=== PATIENT | female | born 1960 | race Caucasian/White ===

== ENCOUNTER 2019-11-12 05:22 | Emergency (ER) | payer MEDICAID ==
[~2019-11-12] VITALS: Ht 157 cm; Wt 44.0 kg
[2019-11-12] MEDS ORDERED: NS IV 500 ML 500 ML IV ONE (06:03)
--- NOTE | 2019-11-12 06:11 | ED GI ---
General Chief Complaint: Abdominal/GI Problems Stated Complaint: POSS FOOD POISONING Nursing Triage Note: constant upper abdominal pressure since 182911/11/2019 after eating chicken. intermittant nausea. Sepsis Screen: No Definite Risk Source of Information: Patient Exam Limitations: No Limitations (GAMALIEL MAGALLON) History of Present Illness Date Seen by Provider: Nov 12, 2019 Time Seen by Provider: 05:45 Initial Comments The patient presents to the ER by private conveyance from home with chief complaint that last night she ate some chicken that she thought tasted like it had turned bad. Shortly after that within an hour she started feeling poorly with nausea and abdominal discomfort. She's not been able to pass stool or vomit. She says her dogs ate it as well but they are fine. She has no fever chills dysuria or diarrhea. She had her appendix removed when she had a C- section many years ago and does not follow with a primary care doctor. She says she has no significant medical history except for epilepsy but does not take any medicines routinely. Her stated allergy to penicillin is it causes cardiac arrest. She says she feels like she would feel much better if she could have a bowel movement or vomit. (GAMALIEL MAGALLON) Allergies and Home Medications Allergies Coded Allergies: Penicillins (Verified Allergy, Unknown, 11/12/19) aspirin (Verified Allergy, Unknown, 11/12/19) Patient Home Medication List Home Medication List Reviewed: Yes (GAMALIEL MAGALLON) Review of Systems Review of Systems Constitutional: No chills, No diaphoresis EENTM: No Blurred Vision, No Double Vision Respiratory: Denies Cough, Denies Shortness of Air Cardiovascular: Denies Chest Pain, Denies Lightheadedness Gastrointestinal: See HPI, Abdominal Pain; Denies Constipated, Denies Diarrhea; Nausea; Denies Vomiting Genitourinary: Denies Burning, Denies Discharge Musculoskeletal: No back pain, No joint pain Skin: No pruritus, No rash Psychiatric/Neurological: Denies Headache, Denies Numbness (GAMALIEL MAGALLON) All Other Systems Reviewed Negative Unless Noted: Yes (GAMALIEL MAGALLON) Past Jhwldxu-Uzznki-Txnhla Hx Patient Social History Alcohol Use: Denies Use Recreational Drug Use: No Smoking Status: Current Everyday Smoker Type Used: Cigarettes 2nd Hand Smoke Exposure: Yes Recent Foreign Travel: No Contact w/Someone Who Travel: No Recent Infectious Disease Expo: No Recent Hopitalizations: No (GAMALIEL MAGALLON) Immunizations Up To Date Tetanus Booster (TDap): Unknown (GAMALIEL MAGALLON) Seasonal Allergies Seasonal Allergies: No (GAMALIEL MAGALLON) Past Medical History Surgeries: Yes Appendectomy, Section, Orthopedic Respiratory: No Cardiac: No Neurological: Yes 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 oz. kg; 17.00 BMI Method: General Appearance: WD/WN, mild distress HEENT: PERRL/EOMI, pharynx normal Neck: full range of motion, supple, normal inspection Respiratory: no respiratory distress, no accessory muscle use Cardiovascular: normal peripheral pulses, regular rate, rhythm Peripheral Pulses: 2+ Radial Pulses (R), 2+ Radial Pulses (L) Gastrointestinal: normal bowel sounds (quiescent), no organomegaly, guarding, tenderness (all 4 quadrants) Extremities: non-tender, normal inspection, normal capillary refill Neurologic/Psychiatric: alert, oriented x 3, other (anxious affect) Skin: normal color, warm/dry (GAMALIEL MAGALLON) Progress/Results/Core Measures Results/Orders Lab Results Laboratory Tests Test 11/12/19 06:05 11/12/19 06:10 Range/Units Urine Color YELLOW Urine Clarity SL CLOUDY Urine pH 6.0 5-9 Urine Specific [place] 1.020 1.016-1.022 Urine Protein NEGATIVE NEGATIVE Urine Glucose (UA) NEGATIVE NEGATIVE Urine Ketones TRACE H NEGATIVE Urine Nitrite NEGATIVE NEGATIVE Urine Bilirubin NEGATIVE NEGATIVE Urine Urobilinogen 0.2 < = 1.0 MG/DL Urine Leukocyte Esterase 1+ H NEGATIVE Urine RBC (Auto) 1+ H NEGATIVE Urine RBC NONE /HPF Urine WBC 2-5 /HPF Urine Squamous Epithelial Cells 0-2 /HPF Urine Crystals NONE /LPF Urine Bacteria NEGATIVE /HPF Urine Casts NONE /LPF Urine Mucus NEGATIVE /LPF Urine Culture Indicated NO White Blood Count 10.9 4.3-11.0 10^3/uL Red Blood Count 4.70 3.80-5.11 10^6/uL Hemoglobin 14.9 11.5-16.0 g/dL Hematocrit 44 35-52 % Mean Corpuscular Volume 93 80-99 fL Mean Corpuscular Hemoglobin 32 25-34 pg Mean Corpuscular Hemoglobin Concent 34 32-36 g/dL Red Cell Distribution Width 11.9 10.0-14.5 % Platelet Count 197 130-400 10^3/uL Mean Platelet Volume 9.4 9.0-12.2 fL Immature Granulocyte % (Auto) 0 % Neutrophils (%) (Auto) 73 42-75 % Lymphocytes (%) (Auto) 19 12-44 % Monocytes (%) (Auto) 7 0-12 % Eosinophils (%) (Auto) 0 0-10 % Basophils (%) (Auto) 0 0-10 % Neutrophils # (Auto) 8.0 H 1.8-7.8 10^3/uL Lymphocytes # (Auto) 2.0 1.0-4.0 10^3/uL Monocytes # (Auto) 0.8 0.0-1.0 10^3/uL Eosinophils # (Auto) 0.0 0.0-0.3 10^3/uL Basophils # (Auto) 0.0 0.0-0.1 10^3/uL Immature Granulocyte # (Auto) 0.0 0.0-0.1 10^3/uL Sodium Level 138 135-145 MMOL/L Potassium Level 3.8 3.6-5.0 MMOL/L Chloride Level 103 98-107 MMOL/L Carbon Dioxide Level 24 21-32 MMOL/L Anion Gap 11 5-14 MMOL/L Blood Urea Nitrogen 10 7-18 MG/DL Creatinine 0.80 0.60-1.30 MG/DL Estimat Glomerular Filtration Rate > 60 BUN/Creatinine Ratio 13 Glucose Level 99 70-105 MG/DL Calcium Level 8.8 8.5-10.1 MG/DL Corrected Calcium 8.5 8.5-10.1 MG/DL Total Bilirubin 1.3 H 0.1-1.0 MG/DL Aspartate Amino Transf (AST/SGOT) 18 5-34 U/L Alanine Aminotransferase (ALT/SGPT) 15 0-55 U/L Alkaline Phosphatase 62 40-136 U/L C-Reactive Protein High Sensitivity 0.11 0.00-0.50 MG/DL Total Protein 6.8 6.4-8.2 GM/DL Albumin 4.4 3.2-4.5 GM/DL Lipase 20 8-78 U/L (REGINALD SURESH MD) My Orders Orders - REGINALD SURESH MD Abdomen, Flat & Upright/Decub (11/12/19 06:32) (REGINALD SURESH MD) Medications Given in ED Current Medications Medications Dose Ordered Sig/Elder Route Start Time Stop Time Status Last Admin Dose Admin Ketorolac Tromethamine 30 mg ONCE ONCE IVP 11/12/19 06:15 11/12/19 06:16 DC 11/12/19 06:14 30 MG Ondansetron HCl 4 mg ONCE ONCE IVP 11/12/19 06:15 11/12/19 06:16 DC 11/12/19 06:13 4 MG Sodium Chloride 500 ml @ 0 mls/hr Q0M ONCE IV 11/12/19 06:03 11/12/19 06:05 DC 11/12/19 06:13 0 MLS/HR (REGINALD SURESH MD) Vital Signs/I&O 11/12/19 11/12/19 05:38 07:35 Temp 36.8 Pulse 99 99 Resp 18 18 B/P (MAP) 105/86 (92) 105/86 (92) Pulse Ox 97 97 O2 Delivery Room Air (REGINALD SURESH MD) Blood Pressure Mean: 92 Progress Progress Note : Time: 06:09 Progress Note Because of the rapid onset of discomfort after eating it's possible she has a preformed toxin. We have described conservative course of care. Plan to check some basic labs and urine to rule out significant infectious disease. Toradol and ondansetron for her discomfort as well as 500 cc normal saline. Urinalysis. We would consider imaging if she has concerning labs. She has no fever but does have a heart rate in the 90s. (GAMALIEL MAGALLON) Progress Note : Time: 07:08 Progress Note I assumed care of this patient from Dr. Magallon at shift change. Labs were reviewed and were unremarkable. KUB/lateral abdominal x-ray was viewed by me and showed no evidence of obstruction. Patient states symptoms completely resolved with treatment and she is ready to go home. Patient was reexamined prior to discharge and found to have no abdominal tenderness or other abnormal abdominal findings. Bowel sounds were normal. (REGINALD SURESH MD) Diagnostic Imaging Diagonstic Imaging: Xray Plain Films/CT/US/NM/MRI: abdomen, pelvis Comments KUB and lateral abdominal x-ray viewed by me. There is no evidence of obstruction. There is perhaps some constipation that patient describes no subjective constipation. (REGINALD SURESH MD) Transfer of Care Time: 06:20 Care transferred to: Dr. Dick (GAMALIEL MAGALLON) Departure Impression Primary Impression: Generalized abdominal pain Additional Impression: Nausea Disposition: 01 HOME, SELF-CARE Condition: Improved Departure-Patient Inst. Decision time for Depature: 07:06 (REGINALD SURESH MD) Referrals: NO,LOCAL PHYSICIAN (PCP/Family) Primary Care Physician Patient Instructions: Severe Abdominal Pain, Adult (DC) Add. Discharge Instructions: Adhere to a clear liquid diet for the next 12 hours. Then gradually advance your diet with small quantities of bland food. For pain you may take Tylenol (acetaminophen) up to 650 mg every 6 hours as needed. For nausea try Zofran (ondansetron) as prescribed. Return to the emergency room if your symptoms worsen despite taking these measures. Otherwise follow up with your primary care provider if you have persistent symptoms. All discharge instructions reviewed with patient and/or family. Voiced understanding. Scripts Ondansetron (Ondansetron Odt) 4 Mg Tab.rapdis 4 MG SL Q4H PRN for NAUSEA/VOMITING, #10 TAB Prov: REGINALD SURESH MD 11/12/19 GAMALIEL MAGALLON Nov 12, 2019 06:11 REGINALD SURESH MD Nov 12, 2019 07:09
[2019-11-12 06:15] LABS: BILIRUBIN,URINE NEGATIVE (NEGATIVE); CLARITY,URINE SL CLOUDY; COLOR,URINE YELLOW; GLUCOSE, URINE (UA) NEGATIVE (NEGATIVE); KETONES,URINE TRACE (NEGATIVE); LEUKOCYTE ESTERASE ,URINE 1+ (NEGATIVE); NITRITE,URINE NEGATIVE (NEGATIVE); PROTEIN,URINE NEGATIVE (NEGATIVE)
[2019-11-12] MEDS ORDERED: KETOROLAC 30 MG/ML VIAL IVP ONE (06:15)
[2019-11-12] MEDS ORDERED: ONDANSETRON 4 MG/2 ML (SDV) Z0FRAN IVP ONE (06:15)
[2019-11-12 06:26] LABS: BASOPHILS % (AUTO) 0 % (0-10); EOSINOPHILS % (AUTO) 0 % (0-10); HEMATOCRIT 44 % (35-52); HEMOGLOBIN 14.9 g/dL (11.5-16.0); LYMPHOCYTES % (AUTO) 19 % (12-44); MEAN CORPUSCULAR HEMOGLOBIN 32 pg (25-34); MEAN CORPUSCULAR HGB CONC 34 g/dL (32-36); MEAN CORPUSCULAR VOLUME 93 fL (80-99); MEAN PLATELET VOLUME 9.4 fL (9.0-12.2); MONOCYTES # (AUTO) 0.8 10^3/uL (0.0-1.0); MONOCYTES % (AUTO) 7 % (0-12); NEUTROPHILS % (AUTO) 73 % (42-75); PLATELET COUNT 197 10^3/uL (130-400); WHITE BLOOD COUNT 10.9 10^3/uL (4.3-11.0)
[2019-11-12 06:31] LABS: BACTERIA,URINE NEGATIVE /HPF; SQUAMOUS EPITHELIAL CELL,UR 0-2 /HPF
[2019-11-12 06:37] LABS: ALBUMIN 4.4 GM/DL (3.2-4.5); CHLORIDE 103 MMOL/L (98-107); POTASSIUM 3.8 MMOL/L (3.6-5.0); SODIUM 138 MMOL/L (135-145)
[2019-11-12 06:38] LABS: CALCIUM 8.8 MG/DL (8.5-10.1)
[2019-11-12 06:39] LABS: GLUCOSE 99 MG/DL (70-105); TOTAL PROTEIN 6.8 GM/DL (6.4-8.2)
[2019-11-12 06:40] LABS: CARBON DIOXIDE 24 MMOL/L (21-32)
[2019-11-12 06:41] LABS: BILIRUBIN,TOTAL 1.3 MG/DL (0.1-1.0)
[2019-11-12 06:42] LABS: ALKALINE PHOSPHATASE 62 U/L (40-136)
[2019-11-12 06:43] LABS: GFR ESTIMATED > 60
[2019-11-12 06:44] LABS: BUN/CREATININE RATIO 13
[2019-11-12 06:46] LABS: ALANINE AMINOTRANSFERASE 15 U/L (0-55)
[2019-11-12 06:52] LABS: LIPASE 20 U/L (8-78)
--- NOTE | 2019-11-12 07:05 | Diagnostic Imaging Report ---
EXAM: ABDOMEN, FLAT UPRIGHT/DECUB INDICATION: Abdominal pain. Nausea. COMPARISON: None. FINDINGS: Nonspecific bowel gas pattern. No large stool burden. The lung bases are clear. No acute osseous findings. No radiopaque foreign bodies. IMPRESSION: Nonspecific bowel gas pattern. Dictated by: Dictated on workstation # [id number]
[2019-11-12 07:35] VITALS: BP 105/86
[2019-11-12] MEDS ORDERED: ONDA4TAB11 SL (09:04)
== END 2019-11-12 07:34 | disposition home or self-care (01) ==
LOC: EDUNIT# 05:22 → ER 05:25
DX: R10.84 Generalized abdominal pain (principal); R11.0 Nausea; G40.909 Epilepsy, unspecified, not intractable, without status epilepticus; F17.210 Nicotine dependence, cigarettes, uncomplicated; Z88.0 Allergy status to penicillin; Z88.6 Allergy status to analgesic agent
CPT/HCPCS: 36415; 74019; 80053; 81000; 83690; 85025; 86141

== ENCOUNTER 2022-07-19 16:22 | Inpatient (IN) | payer MEDICAID ==
[~2022-07-19] VITALS: Ht 157.5 cm; Wt 49.0 kg
[~2022-07-19 16:22] MED LIST: ONDA4TAB11 SL
[2022-07-19] MEDS ORDERED: NS IV 1000 ML 1,000 ML IV STA (16:40)
[2022-07-19] MEDS ORDERED: ONDANSETRON 4 MG/2 ML (SDV) Z0FRAN IVP ONE (16:45)
--- NOTE | 2022-07-19 16:47 | ED Abdominal Pain ---
General Chief Complaint: Abdominal/GI Problems Stated Complaint: VOMITING Source of Information: Patient Exam Limitations: No Limitations History of Present Illness Date Seen by Provider: Jul 19, 2022 Time Seen by Provider: 16:43 Initial Comments Patient is a 62-year-old female with a history of appendectomy who presents to the ED for abdominal pain and vomiting. Symptoms started on Friday. Last bowel movement was Friday. She states she feels bloated and distended. She reports lower abdominal pain that is constant. Pain is described as cramping and worse after vomiting. She denies of any urinary symptoms such as dysuria, increased urine frequency. denies fever, chest pain, cough, shortness of breath. Similar episode in the past secondary to food poisoning. She denies eating anything different earlier this week before the symptoms started. No recent antibiotic use or travels. Denies taking any medication at home. Not able to eat or drink since friday. History of epilepsy. Not currently taking medication. Last seizure several years ago Allergies and Home Medications Allergies Coded Allergies: Penicillins (Verified Allergy, Unknown, 11/12/19) aspirin (Verified Allergy, Unknown, 11/12/19) Patient Home Medication List Home Medication List Reviewed: Yes Ondansetron (Ondansetron Odt) 4 Mg Tab.rapdis, 4 MG SL Q4H PRN for NAUSEA/VOMITING Prescribed by: REGINALD DURON on 11/12/19 0904 Review of Systems Review of Systems Constitutional: No chills, No diaphoresis, No malaise, No weakness EENTM: No Blurred Vision, No Double Vision, No Eye Pain, No Ear Pain, No Mouth Pain, No Throat Pain, No Throat Swelling Respiratory: Denies Cough, Denies Orthopnea, Denies Shortness of Air Cardiovascular: Denies Chest Pain, Denies Edema, Denies Irregular Heart Rate Gastrointestinal: Abdominal Pain; Denies Diarrhea; Nausea, Vomiting Genitourinary: Denies Burning, Denies Discharge, Denies Drainage, Denies Frequency Musculoskeletal: No back pain, No joint pain Skin: No change in color, No change in hair/nails All Other Systems Reviewed Negative Unless Noted: Yes Past Cwkgzgp-Prnggn-Gorvim Hx Patient Social History Tobacco Use?: Yes Tobacco type used: Cigarettes Substance use?: No Alcohol Use?: No Pt feels they are or have been: No Immunizations Up To Date Tetanus Booster (TDap): Unknown Seasonal Allergies Seasonal Allergies: No Past Medical History Surgery/Hospitalization HX: EPILEPSY APPY, , BILAT FEET, KNEE Surgeries: Yes Appendectomy, Section, Orthopedic Respiratory: No Cardiac: No 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 oz. kg; 17.00 BMI Method: General Appearance: WD/WN, no apparent distress HEENT: PERRL/EOMI, normal ENT inspection, TMs normal, pharynx normal Neck: non-tender, full range of motion, supple, normal inspection Respiratory: chest non-tender, lungs clear, normal breath sounds, no respiratory distress, no accessory muscle use Cardiovascular: regular rate, rhythm, no edema, no gallop, no JVD Gastrointestinal: normal bowel sounds, soft, no organomegaly, no pulsatile mass, tenderness (Left lower quadrant tenderness, right upper quadrant tenderness. Normal bowel sounds throughout.) Extremities: normal range of motion, non-tender, normal inspection, no pedal e tere, no calf tenderness Back: normal inspection, no CVA tenderness, no vertebral tenderness Neurologic/Psychiatric: hunter trapper II-XII nml as tested, no motor/sensory deficits, alert, normal mood/affect, oriented x 3 Progress/Results/Core Measures Results/Orders Lab Results Laboratory Tests Test 07/19/22 16:44 07/19/22 18:25 Range/Units White Blood Count 18.2 H 4.3-11.0 10^3/uL Red Blood Count 5.39 H 3.80-5.11 10^6/uL Hemoglobin 17.1 H 11.5-16.0 g/dL Hematocrit 48 35-52 % Mean Corpuscular Volume 90 80-99 fL Mean Corpuscular Hemoglobin 32 25-34 pg Mean Corpuscular Hemoglobin Concent 35 32-36 g/dL Red Cell Distribution Width 12.4 10.0-14.5 % Platelet Count 204 130-400 10^3/uL Mean Platelet Volume 9.3 9.0-12.2 fL Immature Granulocyte % (Auto) 1 % Neutrophils (%) (Auto) 92 H 42-75 % Lymphocytes (%) (Auto) 3 L 12-44 % Monocytes (%) (Auto) 4 0-12 % Eosinophils (%) (Auto) 0 0-10 % Basophils (%) (Auto) 0 0-10 % Neutrophils # (Auto) 16.8 H 1.8-7.8 10^3/uL Lymphocytes # (Auto) 0.6 L 1.0-4.0 10^3/uL Monocytes # (Auto) 0.7 0.0-1.0 10^3/uL Eosinophils # (Auto) 0.0 0.0-0.3 10^3/uL Basophils # (Auto) 0.0 0.0-0.1 10^3/uL Immature Granulocyte # (Auto) 0.1 0.0-0.1 10^3/uL Neutrophils % (Manual) 91 % Lymphocytes % (Manual) 3 % Monocytes % (Manual) 2 % Eosinophils % (Manual) 0 % Basophils % (Manual) 0 % Band Neutrophils 4 % Blood Morphology Comment NORMAL Sodium Level 128 L 135-145 MMOL/L Potassium Level 4.4 3.6-5.0 MMOL/L Chloride Level 93 L 98-107 MMOL/L Carbon Dioxide Level 22 21-32 MMOL/L Anion Gap 13 5-14 MMOL/L Blood Urea Nitrogen 15 7-18 MG/DL Creatinine 0.86 0.60-1.30 MG/DL Estimat Glomerular Filtration Rate 76 BUN/Creatinine Ratio 17 Glucose Level 151 H 70-105 MG/DL Calcium Level 10.3 H 8.5-10.1 MG/DL Corrected Calcium 10.1 8.5-10.1 MG/DL Total Bilirubin 1.2 H 0.1-1.0 MG/DL Aspartate Amino Transf (AST/SGOT) 13 5-34 U/L Alanine Aminotransferase (ALT/SGPT) 12 0-55 U/L Alkaline Phosphatase 71 40-136 U/L Total Protein 7.8 6.4-8.2 GM/DL Albumin 4.2 3.2-4.5 GM/DL Lipase < 4 L 8-78 U/L Urine Color YELLOW Urine Clarity CLEAR Urine pH 5.5 5-9 Urine Specific [place] 1.015 L 1.016-1.022 Urine Protein 2+ H NEGATIVE Urine Glucose (UA) NEGATIVE NEGATIVE Urine Ketones TRACE H NEGATIVE Urine Nitrite NEGATIVE NEGATIVE Urine Bilirubin 1+ H NEGATIVE Urine Urobilinogen 1.0 < = 1.0 MG/DL Urine Leukocyte Esterase NEGATIVE NEGATIVE Urine RBC (Auto) 3+ H NEGATIVE Urine RBC 2-5 H /HPF Urine WBC 0-2 /HPF Urine Squamous Epithelial Cells 0-2 /HPF Urine Crystals NONE /LPF Urine Bacteria FEW H /HPF Urine Casts PRESENT /LPF Urine Hyaline Casts 5-10 H /LPF Urine Mucus SMALL H /LPF Urine Culture Indicated YES My Orders Orders - TUNG RUBI Cbc With Automated Diff (07/19/22 16:40) Comprehensive Metabolic Panel (07/19/22 16:40) Lipase (07/19/22 16:40) Ua Culture If Indicated (07/19/22 16:40) Ct Abdomen/Pelvis W (07/19/22 16:40) Ondansetron Injection (Zofran Injectio (07/19/22 16:45) Ns Iv 1000 Ml (Sodium Chloride 0.9%) (07/19/22 16:40) Manual Differential (07/19/22 16:44) Iohexol Injection (Omnipaque 350 Mg/Ml 1 (07/19/22 17:30) Received Contrast (Hold Metformin- Contr (07/19/22 17:30) Sodium Chloride Flush (Catheter Flush Sy (07/19/22 17:30) Ciprofloxacin Iv 400mg/200ml (Cipro Iv S (07/19/22 18:15) Metronidazole 500mg/100ml Ivpb (Flagyl 5 (07/19/22 18:15) Urine Culture (07/19/22 18:25) Medications Given in ED Current Medications Medications Dose Ordered Sig/Elder Route Start Time Stop Time Status Last Admin Dose Admin Ciprofloxacin/ Dextrose 200 ml @ 200 mls/hr ONCE ONCE IV 07/19/22 18:15 07/19/22 19:14 DC 07/19/22 18:47 200 MLS/HR Iohexol 100 ml ONCE ONCE IV 07/19/22 17:30 07/19/22 17:31 DC 07/19/22 17:38 49 ML Ondansetron HCl 4 mg ONCE ONCE IVP 07/19/22 16:45 07/19/22 16:46 DC 07/19/22 16:47 4 MG Sodium Chloride 10 ml NEEDED PRN IV 07/19/22 17:30 07/19/22 17:38 10 ML Vital Signs/I&O 07/19/22 07/19/22 16:30 19:28 Temp 36.8 36.8 Pulse 77 71 Resp 18 18 B/P (MAP) 123/76 (92) 121/73 Pulse Ox 98 O2 Delivery Room Air Departure Communication (Admissions) Time/Spoke to Admitting Phy: 18:13 Patient is admitted to Dr. Mata. No NG tube. NPO. Okay for ice chips. Two- view abdominal x-ray in the morning. Cipro and Flagyl IV antibiotics. Communication (PCP) Patient with abdominal pain and vomiting with no bowel movement since this past Friday. She reports distention. History of epilepsy with last seizure several years ago. Denies history of coronary artery disease, COPD, diabetes, hypertension. She does smoke. Currently NPO. IV started. She received a liter of fluid. Patient Was given Zofran with improvement of nausea. No active vomiting here. CBC, CMP, lipase and urinalysis was ordered. CBC showed white blood count 18. Sodium 128, chloride 93. Normal liver function and kidney function. Urinalysis positive for red blood cells without strong evidence of infection. Culture pending. Patient cannot recall when her last colonoscopy was. She states it was "normal". She denies of any fever, weight loss, bloody stools. Due to elevated white blood count CT abdomen pelvis was ordered. She had left lower quadrant tenderness, right lower quadrant tenderness and right upper quadrant tenderness. CT abdomen pelvis High-grade small bowel obstruction transitioning in the distal small bowel. In the region of transition there is irregular soft tissue and thickening of the cecum and dilation of the appendix. Findings concerning for malignant obstruction. Patient was discussed with Dr. Mata general surgeon. Recommends n.p.o. Okay with ice chips. Start Cipro and Flagyl. He will follow-up with patient. Recommended no NG tube at this time. Patient will be admitted to the medical floor. Patient is stable. Impression Primary Impression: Small bowel obstruction Disposition: ADMITTED INPATIENT Condition: Stable Admissions Decision to Admit Reason: Admit from ER (General) Decision to Admit/Date: Jul 19, 2022 Time/Decision to Admit Time: 18:13 Departure-Patient Inst. Referrals: NO,LOCAL PHYSICIAN (PCP/Family) Primary Care Physician TUNG RUBI Jul 19, 2022 16:47
[2022-07-19 16:51] LABS: BASOPHILS % (AUTO) 0 % (0-10); EOSINOPHILS % (AUTO) 0 % (0-10); HEMATOCRIT 48 % (35-52); HEMOGLOBIN 17.1 g/dL (11.5-16.0); LYMPHOCYTES # (AUTO) 0.6 10^3/uL (1.0-4.0); LYMPHOCYTES % (AUTO) 3 % (12-44); MEAN CORPUSCULAR HEMOGLOBIN 32 pg (25-34); MEAN CORPUSCULAR HGB CONC 35 g/dL (32-36); MEAN CORPUSCULAR VOLUME 90 fL (80-99); MEAN PLATELET VOLUME 9.3 fL (9.0-12.2); MONOCYTES # (AUTO) 0.7 10^3/uL (0.0-1.0); MONOCYTES % (AUTO) 4 % (0-12); NEUTROPHILS # (AUTO) 16.8 10^3/uL (1.8-7.8); NEUTROPHILS % (AUTO) 92 % (42-75); PLATELET COUNT 204 10^3/uL (130-400); WHITE BLOOD COUNT 18.2 10^3/uL (4.3-11.0)
[2022-07-19 17:10] LABS: ALBUMIN 4.2 GM/DL (3.2-4.5)
[2022-07-19 17:11] LABS: CHLORIDE 93 MMOL/L (98-107); POTASSIUM 4.4 MMOL/L (3.6-5.0); SODIUM 128 MMOL/L (135-145)
[2022-07-19 17:12] LABS: CALCIUM 10.3 MG/DL (8.5-10.1)
[2022-07-19 17:13] LABS: GLUCOSE 151 MG/DL (70-105); TOTAL PROTEIN 7.8 GM/DL (6.4-8.2)
[2022-07-19 17:14] LABS: CARBON DIOXIDE 22 MMOL/L (21-32)
[2022-07-19 17:15] LABS: BILIRUBIN,TOTAL 1.2 MG/DL (0.1-1.0)
[2022-07-19 17:16] LABS: ALKALINE PHOSPHATASE 71 U/L (40-136)
[2022-07-19 17:17] LABS: CREATININE SERUM 0.86 MG/DL (0.60-1.30); GFR ESTIMATED 76
[2022-07-19 17:18] LABS: BAND NEUTROPHILS 4 %; BASOPHILS % (MANUAL) 0 %; BUN/CREATININE RATIO 17; EOSINOPHILS % (MANUAL) 0 %; LYMPHOCYTES % (MANUAL) 3 %; MONOCYTES % (MANUAL) 2 %; NEUTROPHILS % (MANUAL) 91 %; RBC MORPH NORMAL
[2022-07-19 17:19] LABS: ALANINE AMINOTRANSFERASE 12 U/L (0-55)
[2022-07-19 17:20] LABS: LIPASE < 4 U/L (8-78)
[2022-07-19] MEDS ORDERED: CATHETER FLUSH 10 ML SYR IV PRN ×2 (17:30→20:00)
[2022-07-19] MEDS ORDERED: IOHEXOL 350 MG/ML 100 ML (OMNIPAQUE 350) VIAL IV ONE (17:30)
[2022-07-19] MEDS ORDERED: HOLD METFORMIN - RECEIVED CONTRAST 20 ML VIAL IV SCH (17:30)
--- NOTE | 2022-07-19 18:00 | Diagnostic Imaging Report ---
EXAMINATION: CT abdomen and pelvis with intravenous contrast. TECHNIQUE: Multiple contiguous axial images were obtained through the abdomen and pelvis after the uneventful administration of intravenous contrast. All CT scans use one or more of the following dose optimizing techniques: automated exposure control, MA and/or KvP adjustment based on patient size and exam type or iterative reconstruction. HISTORY: Left lower quadrant pain. COMPARISON: None available. FINDINGS: Limited views of the lower thorax are unremarkable. The liver is normal without focal lesion. There is no biliary ductal dilation. Gallbladder is normal. Pancreas is normal. Spleen is normal. Adrenal glands are normal. The kidneys are normal. There is no hydronephrosis. Urinary bladder is normal. There is a high-grade small bowel obstruction with significantly dilated small bowel and abrupt transition in the ileum. There is soft tissue thickening of the cecum and dilation of the appendix with irregular soft tissue in the lateral right pelvis. There is a small amount of ascites. No free air. No abdominal or pelvic lymphadenopathy. Aorta is normal in caliber without aneurysm. There is no suspicious osseus lesion. IMPRESSION: High-grade small bowel obstruction transitioning in the distal small bowel. In the region of transition there is irregular soft tissue and thickening of the cecum and dilation of the appendix. Findings concerning for malignant obstruction. Dictated by: Dictated on workstation # [id number]
[2022-07-19] MEDS ORDERED: metroNIDAZOLE 500MG/100ML IVPB 100 ML IV ONE (18:15)
[2022-07-19] MEDS ORDERED: CIPROFLOXACIN IV 400MG/200ML 200 ML IV ONE (18:15)
[2022-07-19 18:33] LABS: CLARITY,URINE CLEAR; COLOR,URINE YELLOW; GLUCOSE, URINE (UA) NEGATIVE (NEGATIVE); KETONES,URINE TRACE (NEGATIVE); LEUKOCYTE ESTERASE ,URINE NEGATIVE (NEGATIVE); NITRITE,URINE NEGATIVE (NEGATIVE); PH,URINE 5.5 (5-9); PROTEIN,URINE 2+ (NEGATIVE)
[2022-07-19 18:45] LABS: BACTERIA,URINE FEW /HPF; SQUAMOUS EPITHELIAL CELL,UR 0-2 /HPF; WBC,URINE 0-2 /HPF
[2022-07-19 18:46] LABS: BILIRUBIN,URINE 1+ (NEGATIVE)
[2022-07-19 19:53] VITALS: BP 133/83
[2022-07-19] MEDS: NS IV 1000 ML 1,000 ML IV SCH (20:15)
[2022-07-19] MEDS: metroNIDAZOLE 500 MG/100 ML IVPB (PRE-MIX) IV SCH (20:15)
--- NOTE | 2022-07-19 20:40 | HISTORY AND PHYSICAL ---
HISTORY OF PRESENT ILLNESS: The patient is a 62-year-old female who presented to the Emergency Department with abdominal pain as well as nausea and vomiting. She states that this started 3 days ago and was initially mild; however, did worsen over time. She states that her last bowel movement was Friday as well. She does not report any chest pain, palpitations or diaphoresis as well as no shortness of breath. She states that she had a similar episode in the past; however, this was likely due to eating bad foods. She does not report eating any unusual foods or any recent antibiotics or change in water sources. The patient is status post appendectomy and a CT scan was performed, which did show thickening of the cecum and dilatation of what they identify as the appendix concerning for a malignant obstruction. There is also dilated loops of small bowel with transitioning at the distal small bowel. She does not report any previous major issues with diarrhea, nor constipation as well as no red blood per rectum, nor any dark tarry stools. She also does not report any significant history of gastroesophageal reflux disease, no peptic ulcer disease. PAST MEDICAL HISTORY: Seizure disorder, degenerative joint disease. PAST SURGICAL HISTORY: section and appendectomy during the same surgery, bilateral feet surgery, knee arthroscopy. ALLERGIES: PENICILLIN, ASPIRIN. MEDICATIONS: Zofran 4 mg p.r.n. SOCIAL HISTORY: Positive smoke, 40 pack years. Negative alcohol. FAMILY HISTORY: Noncontributory. VITAL SIGNS: Temperature is 36.8, blood pressure 123/76, pulse 77, respirations 18. REVIEW OF SYSTEMS: A slightly thin-appearing female, currently guarded secondary to the crampy abdominal pain. She does have some intermittent episodes of nausea; however, no vomiting. She has not had a bowel movement for the past 3 days. No fever, chills, no recent inadvertent weight loss. No previous upper respiratory infections. All other review of systems negative. PHYSICAL EXAMINATION: CHEST: Few scattered wheezes bilaterally. HEART: Regular. No murmurs. EXTREMITIES: No lower extremity edema. Negative Homans sign. HEENT: No scleral icterus. No cervical lymphadenopathy. ABDOMEN: Soft, mild to moderate distention with mild pain, which is diffuse upon palpation. No palpable hernias. SKIN: Warm, dry. LABORATORY DATA: WBC 18.2, hemoglobin 17.1, hematocrit 48, platelets 204. BUN 15, creatinine 0.86, total bilirubin 1.2. ASSESSMENT AND PLAN: A 62-year-old female with small-bowel obstruction, likely secondary to inflammatory changes at the distal small bowel as well as a lesion identified in the region of the confluence of the cecum and the terminal ileum. She states that she is status post appendectomy along with her hysterectomy years ago. This raises the question of a possible neoplastic lesion within the area. On this admission, we will recommend diagnostic laparoscopy and if an obstructing lesion is identified and safely feasible to resect, we would proceed with that as well. Job ID: [id number] DocumentID: [id number] Dictated Date: 07/19/2022 19:51:17 National Dedicated Truck Driver Date: 07/19/2022 20:38:00 Dictated By: SHERWIN AGARWAL MD
[2022-07-19] MEDS: CATHETER FLUSH 10 ML SYR IV SCH (21:07)
[2022-07-19] MEDS: morphine INJ 4 MG/ML 1 ML (VIAL/SYRINGE) IVP PRN (21:07)
[2022-07-19] MEDS: ONDANSETRON 4 MG/2 ML (SDV) Z0FRAN IVP PRN (21:09)
[2022-07-19 23:01] VITALS: BP 97/63
[2022-07-20] VITALS (7 sets, daily range): BP systolic 94–116; BP diastolic 60–72
[2022-07-20] MEDS: ONDANSETRON 4 MG/2 ML (SDV) Z0FRAN IVP PRN (03:33)
[2022-07-20] MEDS: metroNIDAZOLE 500 MG/100 ML IVPB (PRE-MIX) IV SCH ×3 (03:33→20:08)
[2022-07-20] MEDS: morphine INJ 4 MG/ML 1 ML (VIAL/SYRINGE) IVP PRN ×5 (03:33→22:16)
[2022-07-20] MEDS: NS IV 1000 ML 1,000 ML IV SCH ×3 (05:34→15:56)
[2022-07-20] MEDS: CATHETER FLUSH 10 ML SYR IV SCH ×3 (05:34→21:28)
[2022-07-20 05:53] LABS: BASOPHILS % (AUTO) 0 % (0-10); EOSINOPHILS % (AUTO) 0 % (0-10); HEMATOCRIT 40 % (35-52); HEMOGLOBIN 13.5 g/dL (11.5-16.0); LYMPHOCYTES # (AUTO) 1.1 10^3/uL (1.0-4.0); LYMPHOCYTES % (AUTO) 9 % (12-44); MEAN CORPUSCULAR HEMOGLOBIN 31 pg (25-34); MEAN CORPUSCULAR HGB CONC 34 g/dL (32-36); MEAN CORPUSCULAR VOLUME 91 fL (80-99); MEAN PLATELET VOLUME 9.8 fL (9.0-12.2); MONOCYTES # (AUTO) 0.8 10^3/uL (0.0-1.0); MONOCYTES % (AUTO) 7 % (0-12); NEUTROPHILS # (AUTO) 10.9 10^3/uL (1.8-7.8); NEUTROPHILS % (AUTO) 84 % (42-75); PLATELET COUNT 165 10^3/uL (130-400); WHITE BLOOD COUNT 12.9 10^3/uL (4.3-11.0)
[2022-07-20 06:05] LABS: CALCIUM 8.5 MG/DL (8.5-10.1)
[2022-07-20 06:10] LABS: CREATININE SERUM 0.68 MG/DL (0.60-1.30)
[2022-07-20] MEDS: CIPROFLOXACIN 400 MG/D5W 200 ML (PRE-MIX) IV SCH ×2 (09:19→21:28)
--- NOTE | 2022-07-20 09:42 | Diagnostic Imaging Report ---
INDICATION: Bowel obstruction, followup. TECHNIQUE: Supine and upright radiograph of the abdomen at 9:08 AM. CORRELATION STUDY: CT 07/19/2022. FINDINGS: There remains rather prominent gaseous distention of the gastrointestinal tract. There are air-fluid levels within the dilated small bowel. The overall severity of distention, however, appears improved and decreased from the previous CT study of 1 day earlier. IMPRESSION: Continued rather prominent gaseous distention of the small bowel and colon with air-fluid levels. Concerning for bowel obstruction but overall appears improved from the previous day's study. Dictated by: Dictated on workstation # [id number]
[2022-07-20] MEDS: PROMETHAZINE INJ 25 MG/ML (PHENERGAN) AMP IVP PRN (10:34)
--- NOTE | 2022-07-20 11:11 | Progress Note-Pre Operative ---
Pre-Operative Progress Note Date of Available H&P: Jul 20, 2022 Date H&P Reviewed: Jul 20, 2022 Time H&P Reviewed: 11:10 History & Physical: No changes noted Pre-Operative Diagnosis: small bowel obstruction with cecal mass SHERWIN AGARWAL MD Jul 20, 2022 11:11
[2022-07-21] VITALS (10 sets, daily range): BP systolic 107–145; BP diastolic 65–96
[2022-07-21] MEDS: NS IV 1000 ML 1,000 ML IV SCH ×3 (01:54→16:41)
[2022-07-21] MEDS: metroNIDAZOLE 500 MG/100 ML IVPB (PRE-MIX) IV SCH ×3 (03:38→20:18)
[2022-07-21] MEDS: CATHETER FLUSH 10 ML SYR IV SCH ×3 (03:38→21:29)
[2022-07-21] MEDS: morphine INJ 4 MG/ML 1 ML (VIAL/SYRINGE) IVP PRN ×4 (03:38→23:36)
[2022-07-21] MEDS ORDERED: BUP/EPI 0.25% 1:200,000 (MARCAINE) 30 ML VIAL ONE (09:01)
[2022-07-21] MEDS: CIPROFLOXACIN 400 MG/D5W 200 ML (PRE-MIX) IV SCH ×2 (09:17→21:29)
[2022-07-21] MEDS: LACTATED RINGERS 1,000 ML IV PRN ×2 (09:36→10:33)
[2022-07-21] MEDS ORDERED: fentaNYL INJ 100 MCG/2 ML AMP ONE (09:37)
[2022-07-21] MEDS ORDERED: proPOfol 200 MG/20 ML (DIPRIVAN) VIAL IV ONE (09:37)
[2022-07-21] MEDS ORDERED: MIDAZOLAM 2 MG/2 ML (VERSED) VIAL ONE (09:37)
[2022-07-21] MEDS ORDERED: CLINDAMYCIN 600 MG/50 ML IVPB 50 ML IV ONE ×2 (09:56→10:30)
[2022-07-21] MEDS ORDERED: BUP/EPI 0.25% 1:200,000 (MARCAINE) 30 ML VIAL INJ ONE (10:32)
[2022-07-21] MEDS ORDERED: LIDOCAINE PF 2% 5 ML (XYLOCAINE) VIAL ONE (10:55)
[2022-07-21] MEDS ORDERED: ONDANSETRON 4 MG/2 ML (SDV) Z0FRAN ONE ×2 (10:55→11:14)
[2022-07-21] MEDS ORDERED: ROCURONIUM 50 MG/5 ML (ZEMURON) VIAL IV ONE (10:56)
[2022-07-21] MEDS ORDERED: SEVOFLURANE (ULTANE) 15 ML INHAL SOLN ONE (11:17)
[2022-07-21] MEDS ORDERED: GLYCOPYRROLATE 0.2 MG/ML (ROBINUL) 2 ML VIAL ONE (11:18)
[2022-07-21] MEDS ORDERED: NEOSTIGMINE (BLOXIVERZ ) 1 MG/1ML 10 ML VIAL ONE (11:18)
--- NOTE | 2022-07-21 11:24 | Progress Note-Post Operative ---
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 Procedure & Operative Findings Date of Procedure 07/21/22 Procedure Performed/Findings laparoscopic appendiceal stump resection and partial cecectomy. Anesthesia Type get Estimated Blood Loss Estimated blood loss (mL): minimal Specimens/Packing Specimens Removed appendiceal stump and cecal wedge. SHERWIN AGARWAL MD Jul 21, 2022 11:24
[2022-07-21] MEDS ORDERED: METR-145 PO (11:26)
[2022-07-21] MEDS ORDERED: CIPR-225 PO (11:26)
[2022-07-21] MEDS ORDERED: HYDR-3817 PO (11:26)
--- NOTE | 2022-07-21 11:26 | Discharge Inst-Surgical ---
D/C Lap Instructions-STEFANO New, Converted, or Re-Newed RX: RX on Chart Follow Up Appt in 2 weeks Activity as tolerated No driving for 24 hours No driving while on pain medications Incentive Spirometry use every 2 hours while awake Regular Diet Symptoms to Report: Fever over 101 degree F, Nausea/Vomiting Infection Signs and Symptoms to report: Increased redness, Foul odor of wound, Increased drainage Bathing instructions: May shower Operative Area Clean/Dry; Keep incision clean/dry If any problems/questions: Contact your physician or go to Emergency Room SHERWIN AGARWAL MD Jul 21, 2022 11:26
--- NOTE | 2022-07-21 11:53 | Anesthesia-General Post-Op ---
General Patient Condition Mental Status/LOC: Same as Preop Cardiovascular: Satisfactory Nausea/Vomiting: Absent Respiratory: Satisfactory Pain: Controlled Complications: Absent Post Op Complications Complications None Follow Up Care/Instructions Patient Instructions None needed. Anesthesia/Patient Condition Patient Condition Patient is doing well, no complaints, stable vital signs, no apparent adverse anesthesia problems. No complications reported per nursing. ÁNGEL VANCE CRNA Jul 21, 2022 11:53
[2022-07-21] MEDS ORDERED: morphine INJ 10 MG/ML 1ML (SYR OR VIAL) IVP ONE (12:00)
[2022-07-21] MEDS ORDERED: ONDANSETRON 4 MG/2 ML (SDV) Z0FRAN IVP PRN (12:00)
[2022-07-21] MEDS ORDERED: MEPERIDINE (DEMEROL) INJ 50 MG/ML IVP ONE (12:00)
[2022-07-21] MEDS ORDERED: PROMETHAZINE INJ 25 MG/ML (PHENERGAN) AMP IVP ONE (12:00)
[2022-07-21] MEDS: HYDROcodone/APAP 7.5 MG/325 MG (LORTAB, LORCET PLUS) TABLET PO PRN (15:41)
--- NOTE | 2022-07-21 20:03 | OPERATIVE REPORT ---
DATE OF SERVICE: 07/21/2022 PREOPERATIVE DIAGNOSIS: Small-bowel obstruction, cecal lesion. 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 PROCEDURE: Diagnostic laparoscopy, lysis of terminal ileal adhesions and decompression of small bowel obstruction, laparoscopic appendiceal stump resection and wedge resection of the cecum. SURGEON: Fany Agarwal MD ACCESS DIRECTOR: Izaiah Valentine APRN ANESTHESIA: General endotracheal. ESTIMATED BLOOD LOSS: Minimal. 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 DISPOSITION: The patient tolerated the procedure well. INDICATIONS: The patient is a 62-year-old female who presented to the Emergency Department with abdominal pain and nausea and vomiting. She has stated this had started 3 days prior and was initially mild; however, worsened over time. She reports that her last bowel movement was several days ago as well. She states that she has had 2 similar episodes before in the past including abdominal distention and nausea and vomiting; however, did resolve on its own over time. The patient states she is status post appendectomy during a section; however, CT scan was performed, which was read as thickening of the cecum and dilatation of what they identified as appendix, which may also indicate a malignant obstruction. There was also dilated loops of small bowel with a transition zone of the distal small bowel. She did not report any major issues with diarrhea, nor constipation as well as no red blood per rectum, nor any dark tarry stools. DESCRIPTION OF PROCEDURE: The patient was brought to the operating room, laid supine on the table. After adequate IV pain and sedative medications and general endotracheal intubation, the abdomen was prepped and draped in standard surgical fashion. A 0.5% Marcaine with epinephrine was used to anesthetize the overlying skin in the left upper abdominal quadrant and a transverse skin incision made using a 15 blade. An 0 silk suture was applied to the medial aspect of the incision for retraction and a Veress needle inserted with low opening pressure of 0 mmHg and the abdomen was then insufflated to 15 mmHg pressure. The Veress needle removed and a 5 mm XL trocar placed followed by a 5 mm 45-degree angle laparoscope visualized the peritoneal cavity. A 4-quadrant abdominal exploration was performed. The patient was placed in Trendelenburg position as well as plane right side up, left side down. There was adhesion tissue of the right lower abdominal quadrant with a transition zone of the distal small bowel of dilated proximal loops and compressed distal portion. There were adhesion tissues causing this and these were taken down using Sonicision with visualization of good hemostasis and decompression of the distal small bowel. We then proceeded to identify and dissect out the cecum where an inflammatory phlegmon and purulence was identified, which appeared to be the appendiceal stump. There was also a fibrinopurulent rind around this entire area consistent with an acute on chronic appendicitis. This inflammation also did encroach upon the cecal base. We then proceeded with the appendiceal stump resection as well as wedge resection of the cecum using a REJI 2.5 mm thickness caden. The mesoappendix was then stapled and transected with the same stapler with a 2.0 mm thickness reload with visualization of good hemostasis. The appendiceal stump and wedge of cecum were then removed using an endocatch bag. This area was then copiously irrigated and suctioned out with visualization of good hemostasis. A 19-Belgian Nazario-Alvarez drain was then placed into the area of inflammation and pelvis and brought out the left upper abdominal quadrant port and sutured to the skin using 3-0 nylon suture. Good hemostasis was observed. The 10 mm port site fascia and peritoneum were then closed under direct visualization using a 0 Vicryl suture on a UR needle. The remaining ports were removed and all skin incisions were closed using 4-0 Monocryl running subcuticular sutures. Wounds were then cleaned and covered with Dermabond. The patient tolerated the procedure well. We will start IV normal pain medication as well as a clear liquid diet. We will also continue with her current regimen of antibiotics. Once she is tolerating liquids, has bowel function and has adequate pain control with oral pain medication and is ambulating well, we will discharge her home. We will also have her continue with oral antibiotics for approximately 1 week. Job ID: [id number] DocumentID: [id number] Dictated Date: 07/21/2022 11:35:55 Meter Mechanic Date: 07/21/2022 20:01:00 Dictated By: FANY AGARWAL MD [facility]
[2022-07-22] VITALS (7 sets, daily range): BP systolic 92–127; BP diastolic 58–97
[2022-07-22] MEDS: morphine INJ 4 MG/ML 1 ML (VIAL/SYRINGE) IVP PRN (02:23)
[2022-07-22] MEDS: NS IV 1000 ML 1,000 ML IV SCH ×3 (02:23→22:50)
[2022-07-22] MEDS: metroNIDAZOLE 500 MG/100 ML IVPB (PRE-MIX) IV SCH ×3 (03:56→22:50)
[2022-07-22] MEDS: CATHETER FLUSH 10 ML SYR IV SCH ×3 (03:56→22:50)
[2022-07-22 05:25] LABS: BASOPHILS % (AUTO) 0 % (0-10); EOSINOPHILS % (AUTO) 0 % (0-10); HEMATOCRIT 37 % (35-52); HEMOGLOBIN 12.7 g/dL (11.5-16.0); LYMPHOCYTES % (AUTO) 10 % (12-44); MEAN CORPUSCULAR HEMOGLOBIN 32 pg (25-34); MEAN CORPUSCULAR HGB CONC 35 g/dL (32-36); MEAN CORPUSCULAR VOLUME 92 fL (80-99); MEAN PLATELET VOLUME 9.3 fL (9.0-12.2); MONOCYTES # (AUTO) 1.1 10^3/uL (0.0-1.0); MONOCYTES % (AUTO) 11 % (0-12); NEUTROPHILS # (AUTO) 7.8 10^3/uL (1.8-7.8); NEUTROPHILS % (AUTO) 78 % (42-75); PLATELET COUNT 189 10^3/uL (130-400)
[2022-07-22 05:38] LABS: POTASSIUM 3.4 MMOL/L (3.6-5.0)
[2022-07-22] MEDS: HYDROcodone/APAP 7.5 MG/325 MG (LORTAB, LORCET PLUS) TABLET PO PRN ×3 (05:38→16:32)
[2022-07-22 05:39] LABS: CALCIUM 7.7 MG/DL (8.5-10.1)
[2022-07-22 05:44] LABS: CREATININE SERUM 0.59 MG/DL (0.60-1.30)
[2022-07-22] MEDS: CIPROFLOXACIN 400 MG/D5W 200 ML (PRE-MIX) IV SCH ×2 (08:24→22:50)
--- NOTE | 2022-07-22 08:28 | Physical Therapy Evaluation ---
PT Evaluation-General Medical Diagnosis Admission Date Jul 19, 2022 at 19:36 Medical Diagnosis: small bowel obstruction Onset Date: Jul 19, 2022 Therapy Diagnosis Therapy Diagnosis: debility Precautions Precautions/Isolations: Standard Precautions Weight Bear Status Right Lower Extremity: Right Full Weight Bearing Left Lower Extremity: Left Full Weight Bearing Referral Physician: Adolfo Reason for Referral: Evaluation/Treatment Medical History Pertinent Medical History: Smoking Current History ER secondary to abdominal pain Reviewed History: Yes Social History Home: Single Level Prior Prior Level of Function SCALE: Activities may be completed with or without assistive devices. 5-Zahganxryx-hyfnuti completes the activity by him/herself with no assistance from a helper. 5-Set-up or Clean-up Assistance-helper sets up or cleans up; patient completes a ctivity. Lily Dale assists only prior to or following the activity. 4-Supervision or Touching Assistance-helper provides verbal cues and/or touching/steadying and/or contact guard assistance as patient completes activity. Assistance may be provided throughout the activity or intermittently. 3-Partial/Moderate Assistance-helper does LESS THAN HALF the effort. Lily Dale lifts, holds or supports trunk or limbs, but provides less than half the effort. 2-Substantial/Maximal Assistance-helper does MORE THAN HALF the effort. Lily Dale lifts or holds trunk or limbs and provides more than half the effort. 0-Nkkxizouc-itiyqh does ALL the effort. Patient does none of the effort to complete the activity. Or, the assistance of 2 or more helpers is required for the patient to complete the activity. If activity was not attempted, code reason: 7-Patient Refused. 9-Not Applicable-not attempted and the patient did not perform the activity before the current illness, exacerbation or injury. 10-Not Attempted due to Environmental Limitations-(lack of equipment, weather restraints, etc.). 88-Not Attempted due to Medical Conditions or Safety Concerns. Bed Mobility: 6 Transfers (B,C,W/C): 6 Gait: 6 Stairs: 6 Indoor Mobility (Ambulation): Independent Stairs: Independent Prior Devices Use: None PT Evaluation-Current Subjective Patient agrees to PT. Objective Patient Orientation: Normal For Age Attachments: IV ROM/Strength ROM Lower Extremities bilateral LE WFL Strength Lower Extremities 4/5 grossly bilateral LE WFL Integumentary/Posture Bowel Incontinence: No Bladder Incontinence: No Posture WFL Neuromuscular (Tone, Coordination, Reflexes) grossly intact Sensory Vision: Wears Glasses Hearing: Functional Transfers Lying to Sitting/Side of Bed(Q: 6 Sit to Stand (QC): 6 Chair/Yys-ax-Hnimt Xfer(QC): 6 Toilet Transfer (QC): 6 Gait Mode of Locomotion: Walk Anticipated Mode of Locomotion: Walk Walk 10 feet (QC): 6 Walk 50 ft with 2 Turns(QC): 6 Walk 150 ft (QC): 6 Distance: 300' Gait Assistive Device: None Comments/Gait Description safe and functional with no deviation Balance Sitting Static: Normal Sitting Dynamic: Normal Standing Static: Normal Standing Dynamic: Normal Assessment/Needs Patient is currently at independent PLOF with all gross motor skills and no skilled PT indicated. Rehab Potential: Fair PT Plan Treatment/Plan Treatment Plan: Discontinue PT, goals met Treatment Duration: Jul 22, 2022 Frequency: 1 time per week Estimated Hrs Per Day: .25 hour per day Patient and/or Family Agrees t: Yes Time Time In: 750 Time Out: 800 DATE: Jul 22, 2022 Total Billed Treatment Time: 10 Total Billed Treatment 1 visit EVMod 10 min DAR GOODE PT Jul 22, 2022 08:28
--- NOTE | 2022-07-22 15:16 | Occ Therapy Progress Note ---
Therapy Progress Note OT order received, OT observed and assessed patient in halls and room, no skilled therapy evaluation indicated at this time. Thank you MINNA VALENCIA OT Jul 22, 2022 15:16
--- NOTE | 2022-07-22 19:23 | Progress Note ---
Subjective Date Seen by a Provider: Jul 22, 2022 Time Seen by a Provider: 19:00 Subjective/Events-last exam doing ok. pain controlled. tolerating clears. no bowel movement yet however has active bowel sounds. ambulating well. Objective Exam Vital Signs Date Time Temp Pulse Resp B/P (MAP) Pulse Ox O2 Delivery O2 Flow Rate FiO2 07/22/22 15:45 36.5 87 20 127/83 (98) 97 Room Air 07/22/22 12:16 37.1 80 16 113/74 (87) 94 Room Air 07/22/22 09:56 Room Air 0.00 07/22/22 08:14 37.2 92 16 114/97 (103) 93 Room Air 07/22/22 08:00 Room Air 07/22/22 05:45 93 Room Air 07/22/22 04:12 37.1 88 18 100/66 (77) 95 Nasal Cannula 2.00 07/22/22 00:25 36.9 80 18 92/58 (69) 93 Room Air 07/21/22 20:20 Room Air 07/21/22 19:47 37.1 78 20 130/86 (101) 92 Room Air I & O 07/22/22 07:00 Intake Total 4970 ml Output Total 3635 ml Balance 1335 ml Capillary Refill : General Appearance: No Apparent Distress HEENT: PERRL/EOMI Neck: Full Range of Motion Respiratory: Chest Non Tender, Wheezing Cardiovascular: Regular Rate, Rhythm Gastrointestinal: soft, distended, tenderness, other (inc clean/dry) Neurologic/Psychiatric: Alert, Oriented x3 Skin: Normal Color Lymphatic: No Adenopathy Results Lab Laboratory Tests 07/22/22 05:05: White Blood Count 10.0, Red Blood Count 4.02, Hemoglobin 12.7, Hematocrit 37, Mean Corpuscular Volume 92, Mean Corpuscular Hemoglobin 32, Mean Corpuscular Hemoglobin Concent 35, Red Cell Distribution Width 12.4, Platelet Count 189, Mean Platelet Volume 9.3, Immature Granulocyte % (Auto) 1, Neutrophils (%) (Auto) 78H, Lymphocytes (%) (Auto) 10L, Monocytes (%) (Auto) 11, Eosinophils (%) (Auto) 0, Basophils (%) (Auto) 0, Neutrophils # (Auto) 7.8, Lymphocytes # (Auto) 1.0, Monocytes # (Auto) 1.1H, Eosinophils # (Auto) 0.0, Basophils # (Auto) 0.0, Immature Granulocyte # (Auto) 0.1, Sodium Level 133L, Potassium Level 3.4L, Chloride Level 102, Carbon Dioxide Level 21, Anion Gap 10, Blood Urea Nitrogen 4L, Creatinine 0.59L, Estimat Glomerular Filtration Rate 101, BUN/Creatinine Ratio 7, Glucose Level 79, Calcium Level 7.7L Microbiology 07/20/22 MRSA Screen - Final, Complete MRSA not isolated 07/19/22 Urine Culture - Final, Complete Mixed Bacterial Taya Assessment/Plan Assessment/Plan Assess & Plan/Chief Complaint SBO obstruction s/p dx laparoscopy, MARIBEL, resection appendiceal stump and cecal wedge. cont ambulation. await more bowel fxn. start reglan. SHERWIN AGARWAL MD Jul 22, 2022 19:23
--- NOTE | 2022-07-22 19:26 | Discharge Inst-Surgical ---
D/C Lap Instructions-STEFANO New, Converted, or Re-Newed RX: RX on Chart Follow Up Appt in 1 week Activity as tolerated No driving for 24 hours No driving while on pain medications Incentive Spirometry use every 2 hours while awake Regular Diet Symptoms to Report: Fever over 101 degree F, Nausea/Vomiting Infection Signs and Symptoms to report: Increased redness, Foul odor of wound, Increased drainage Bathing instructions: May shower Operative Area Clean/Dry; Keep incision clean/dry If any problems/questions: Contact your physician or go to Emergency Room SHERWIN AGARWAL MD Jul 22, 2022 19:26
[2022-07-22] MEDS: SENNA W/DOCUSATE (SENOKOT S) TABLET PO SCH (22:50)
[2022-07-22] MEDS: DOCUSATE SODIUM 100 MG (COLACE) CAP PO SCH (22:50)
[2022-07-22] MEDS: METOCLOPRAMIDE INJ 10 MG/2 ML (REGLAN) IVP SCH (23:00)
[2022-07-23 03:49] VITALS: BP 130/71
[2022-07-23] MEDS: NS IV 1000 ML 1,000 ML IV SCH (04:17)
[2022-07-23] MEDS: morphine INJ 4 MG/ML 1 ML (VIAL/SYRINGE) IVP PRN (04:17)
[2022-07-23] MEDS: metroNIDAZOLE 500 MG/100 ML IVPB (PRE-MIX) IV SCH ×3 (04:33→20:28)
[2022-07-23] MEDS: CATHETER FLUSH 10 ML SYR IV SCH ×3 (06:07→22:05)
[2022-07-23] MEDS: METOCLOPRAMIDE INJ 10 MG/2 ML (REGLAN) IVP SCH ×4 (06:07→23:59)
[2022-07-23] MEDS: HYDROcodone/APAP 7.5 MG/325 MG (LORTAB, LORCET PLUS) TABLET PO PRN ×2 (08:16→12:18)
[2022-07-23] MEDS: SENNA W/DOCUSATE (SENOKOT S) TABLET PO SCH ×2 (08:16→21:22)
[2022-07-23] MEDS: CIPROFLOXACIN 400 MG/D5W 200 ML (PRE-MIX) IV SCH ×2 (08:16→21:39)
[2022-07-23] MEDS: DOCUSATE SODIUM 100 MG (COLACE) CAP PO SCH ×2 (08:16→21:22)
[2022-07-23 08:33] VITALS: BP 122/83
[2022-07-23 12:43] VITALS: BP 128/83
[2022-07-23] MEDS: LACTATED RINGERS 1,000 ML IV SCH ×2 (15:07→23:58)
[2022-07-23] MEDS: PROMETHAZINE INJ 25 MG/ML (PHENERGAN) AMP IVP PRN (15:08)
[2022-07-23 15:44] VITALS: BP 130/61
--- NOTE | 2022-07-23 15:44 | Diagnostic Imaging Report ---
INDICATION: Bowel obstruction. COMPARISON: Exam is compared with study of 07/20/2022. FINDINGS: Dilatation of small bowel with differential air-fluid levels persists. There is some gas within the transverse colon. No abnormal fecal loading. IMPRESSION: Air-fluid levels associated with dilated upper abdominal small bowel, unchanged from prior. There is gas within the transverse colon. Dictated by: Dictated on workstation # [id number]
--- NOTE | 2022-07-23 15:51 | Progress Note ---
Subjective Date Seen by a Provider: Jul 23, 2022 Time Seen by a Provider: 15:00 Subjective/Events-last exam developed nausea and vomiting on regular diet. will restart IV and clear liquids sparingly. likely has ileus. Objective Exam Vital Signs Date Time Temp Pulse Resp B/P (MAP) Pulse Ox O2 Delivery O2 Flow Rate FiO2 07/23/22 15:44 37.0 80 20 130/61 (84) 95 Room Air 07/23/22 12:43 37.0 76 16 128/83 (98) 95 Room Air 07/23/22 08:33 36.8 88 16 122/83 (96) 95 Room Air 07/23/22 08:00 Room Air 07/23/22 03:49 36.5 85 20 130/71 (90) 95 Room Air 0.00 0.00 07/22/22 23:08 36.9 77 20 124/77 (93) 94 Room Air 0.00 0.00 07/22/22 20:00 Room Air 07/22/22 19:42 37.0 88 20 105/73 (84) 94 Room Air I & O 07/23/22 07:00 Intake Total 2950 ml Output Total 70 ml Balance 2880 ml Capillary Refill : General Appearance: No Apparent Distress HEENT: PERRL/EOMI Respiratory: Chest Non Tender, Decreased Breath Sounds Cardiovascular: Regular Rate, Rhythm Gastrointestinal: distended, tenderness Extremity: Normal Capillary Refill Neurologic/Psychiatric: Alert, Oriented x3 Skin: Normal Color Lymphatic: No Adenopathy Results Lab Microbiology 07/20/22 MRSA Screen - Final, Complete MRSA not isolated 07/19/22 Urine Culture - Final, Complete Mixed Bacterial Taya Assessment/Plan Assessment/Plan Assess & Plan/Chief Complaint SBO obstruction s/p dx laparoscopy, MARIBEL, resection appendiceal stump and cecal wedge. cont ambulation. await more bowel fxn. start reglan. check axr. clear liquis sparing for now until more bowel fxn. SHERWIN AGARWAL MD Jul 23, 2022 15:51
[2022-07-23 19:24] VITALS: BP 125/68
[2022-07-23 23:55] VITALS: BP 124/61
[2022-07-24] MEDS: HYDROcodone/APAP 7.5 MG/325 MG (LORTAB, LORCET PLUS) TABLET PO PRN ×2 (00:03→09:11)
[2022-07-24 03:54] VITALS: BP 97/65
[2022-07-24] MEDS: metroNIDAZOLE 500 MG/100 ML IVPB (PRE-MIX) IV SCH ×2 (04:16→12:05)
[2022-07-24] MEDS: METOCLOPRAMIDE INJ 10 MG/2 ML (REGLAN) IVP SCH ×4 (05:53→23:58)
[2022-07-24 08:45] VITALS: BP 122/78
[2022-07-24] MEDS: LACTATED RINGERS 1,000 ML IV SCH ×3 (09:09→18:03)
[2022-07-24] MEDS: SENNA W/DOCUSATE (SENOKOT S) TABLET PO SCH ×2 (09:10→20:19)
[2022-07-24] MEDS: DOCUSATE SODIUM 100 MG (COLACE) CAP PO SCH ×2 (09:10→20:19)
[2022-07-24] MEDS: CATHETER FLUSH 10 ML SYR IV SCH ×3 (09:10→20:19)
[2022-07-24] MEDS: CIPROFLOXACIN 400 MG/D5W 200 ML (PRE-MIX) IV SCH (09:10)
[2022-07-24 12:31] VITALS: BP 120/77
[2022-07-24 15:42] VITALS: BP 120/70
--- NOTE | 2022-07-24 16:26 | Progress Note ---
Subjective Date Seen by a Provider: Jul 24, 2022 Time Seen by a Provider: 16:00 Subjective/Events-last exam doing ok. still now BM. mild abd distention and pain. ambulating well. Objective Exam Vital Signs Date Time Temp Pulse Resp B/P (MAP) Pulse Ox O2 Delivery O2 Flow Rate FiO2 07/24/22 15:42 37.4 76 16 120/70 (87) 95 Room Air 07/24/22 12:31 36.9 73 16 120/77 (91) 96 Room Air 07/24/22 08:45 37.1 78 16 122/78 (93) 96 Room Air 07/24/22 08:00 Room Air 07/24/22 03:54 36.9 95 18 97/65 (76) 91 Room Air 07/23/22 23:55 37.0 77 20 124/61 (82) 93 Room Air 07/23/22 20:30 Room Air 07/23/22 19:24 37.2 94 20 125/68 (87) 95 Room Air I & O 07/24/22 07:00 Intake Total 2330 ml Output Total 55 ml Balance 2275 ml Capillary Refill : General Appearance: No Apparent Distress HEENT: PERRL/EOMI Respiratory: Chest Non Tender, Wheezing Gastrointestinal: soft, distended, tenderness, other (inc clean/dry) Extremity: Normal Capillary Refill Neurologic/Psychiatric: Alert, Oriented x3 Skin: Normal Color Lymphatic: No Adenopathy Results Lab Laboratory Tests 07/23/22 18:00: Glucometer 108 07/23/22 23:58: Glucometer 100 07/24/22 05:24: Glucometer 98 07/24/22 12:28: Glucometer 81 Microbiology 07/20/22 MRSA Screen - Final, Complete MRSA not isolated 07/19/22 Urine Culture - Final, Complete Mixed Bacterial Taya Assessment/Plan Assessment/Plan Assess & Plan/Chief Complaint SBO obstruction s/p dx laparoscopy, MARIBEL, resection appendiceal stump and cecal wedge. cont ambulation. await more bowel fxn. start reglan. check axr. clear liquis sparing for now until more bowel fxn. g-graffin UGI in am which may be diagnostic as well as therapeutic. SHERWIN AGARWAL MD Jul 24, 2022 16:26
[2022-07-24 19:24] VITALS: BP 112/69
[2022-07-25] VITALS (7 sets, daily range): BP systolic 119–144; BP diastolic 56–75
[2022-07-25] MEDS: LACTATED RINGERS 1,000 ML IV SCH ×3 (00:04→06:50)
[2022-07-25] MEDS: CATHETER FLUSH 10 ML SYR IV SCH ×3 (05:18→20:52)
[2022-07-25] MEDS: METOCLOPRAMIDE INJ 10 MG/2 ML (REGLAN) IVP SCH ×4 (05:51→23:18)
[2022-07-25] MEDS ORDERED: DIATRIZOATE MEGLUM/SODIUM 37% 120 ML (GASTROGRAFIN) PO ONE (07:30)
[2022-07-25] MEDS: SENNA W/DOCUSATE (SENOKOT S) TABLET PO SCH ×2 (08:49→20:51)
[2022-07-25] MEDS: DOCUSATE SODIUM 100 MG (COLACE) CAP PO SCH ×2 (08:49→20:51)
[2022-07-25] MEDS: NICOTINE 21 MG (NICODERM) PATCH TD SCH (08:56)
[2022-07-25] MEDS: NICOTINE PATCH REMOVAL TP SCH (09:01)
--- NOTE | 2022-07-25 12:13 | Progress Note ---
Subjective Date Seen by a Provider: Jul 25, 2022 Time Seen by a Provider: 11:50 Subjective/Events-last exam Patient seen with Dr. Mata. Patient reports having flatus and liquid stools, 3 today. Does report some nausea and right lower quadrant abdominal discomfort. Small bowel follow through in progress. Tolerating liquids. Objective Exam Vital Signs Date Time Temp Pulse Resp B/P (MAP) Pulse Ox O2 Delivery O2 Flow Rate FiO2 07/25/22 08:00 Room Air 07/25/22 08:00 36.7 73 18 125/74 (91) 96 Room Air 07/25/22 04:08 37.2 74 14 124/69 (87) 91 Room Air 07/25/22 00:21 37.0 75 16 130/75 (93) 93 Room Air 07/24/22 20:20 Room Air 07/24/22 19:24 37.3 73 16 112/69 (83) 95 Room Air 07/24/22 15:42 37.4 76 16 120/70 (87) 95 Room Air 07/24/22 12:31 36.9 73 16 120/77 (91) 96 Room Air I & O 07/25/22 07:00 Intake Total 1200 ml Output Total 40 ml Balance 1160 ml Capillary Refill : General Appearance: No Apparent Distress, WD/WN Neck: Normal Inspection, Supple Respiratory: No Accessory Muscle Use, No Respiratory Distress Gastrointestinal: distended, tenderness (RLQ), other (TEOFILO drain with clear SS drainage) Extremity: Normal Inspection, Normal Range of Motion Neurologic/Psychiatric: Alert, Oriented x3 Skin: Normal Color, Warm/Dry Results Lab Laboratory Tests 07/24/22 12:28: Glucometer 81 07/24/22 17:44: Glucometer 87 07/25/22 00:28: Glucometer 78 07/25/22 06:15: Glucometer 80 07/25/22 11:58: Glucometer 75 Microbiology 07/20/22 MRSA Screen - Final, Complete MRSA not isolated 07/19/22 Urine Culture - Final, Complete Mixed Bacterial Taya Assessment/Plan Assessment/Plan Assess & Plan/Chief Complaint SBO obstruction s/p dx laparoscopy, MARIBEL, resection appendiceal stump and cecal wedge. cont ambulation. await more bowel fxn. start reglan. check axr. will advance to regular diet g-graffin UGI in progress Pain and nausea meds as needed CRISTO PALOMARES TEAMSITE DEVELOPER Jul 25, 2022 12:13
--- NOTE | 2022-07-25 12:57 | Diagnostic Imaging Report ---
INDICATION: Ileus versus small bowel obstruction. Patient ingested 120 mL of Gastrografin contrast mixed with 120 mL water and serial radiographs of the abdomen were obtained. The preliminary radiograph does show moderate gaseous distention of small and large bowel loops. Drains overlie the abdomen. Post ingestion radiographs demonstrate contrast within the stomach with prompt emptying into the small bowel. The proximal small bowel is moderately distended. Contrast does appear to reach the right colon at approximately 3 hours. No complete obstruction is identified. Mucosal fold pattern is unremarkable. IMPRESSION: No evidence of complete small bowel obstruction. Dictated by: Dictated on workstation # [id number]
[2022-07-26 03:40] VITALS: BP 137/72
[2022-07-26] MEDS: METOCLOPRAMIDE INJ 10 MG/2 ML (REGLAN) IVP SCH ×2 (06:45→12:45)
[2022-07-26] MEDS: CATHETER FLUSH 10 ML SYR IV SCH (06:46)
[2022-07-26 08:08] VITALS: BP 110/59
[2022-07-26] MEDS: DOCUSATE SODIUM 100 MG (COLACE) CAP PO SCH (09:47)
[2022-07-26] MEDS: SENNA W/DOCUSATE (SENOKOT S) TABLET PO SCH (09:47)
[2022-07-26] MEDS: NICOTINE PATCH REMOVAL TP SCH (10:06)
[2022-07-26] MEDS: NICOTINE 21 MG (NICODERM) PATCH TD SCH (10:07)
--- NOTE | 2022-07-26 10:34 | Progress Note ---
Subjective Date Seen by a Provider: Jul 26, 2022 Time Seen by a Provider: 10:00 Subjective/Events-last exam doing well. tolerating diet and having multiple loose BM's. less abd distention and discomfort. Objective Exam Vital Signs Date Time Temp Pulse Resp B/P (MAP) Pulse Ox O2 Delivery O2 Flow Rate FiO2 07/26/22 08:08 37.2 85 18 110/59 (76) 94 Room Air 07/26/22 03:40 36.6 76 18 137/72 (93) 95 Room Air 07/25/22 23:18 37.4 79 18 119/61 (80) 95 Room Air 07/25/22 20:50 Room Air 07/25/22 20:10 37.2 77 20 125/59 (81) 94 Room Air 07/25/22 16:23 37.4 76 20 144/65 (91) 97 Room Air 07/25/22 12:10 36.8 70 18 121/56 (77) 95 Room Air I & O 07/26/22 07:00 Intake Total 1800 ml Output Total 180 ml Balance 1620 ml Capillary Refill : General Appearance: No Apparent Distress HEENT: PERRL/EOMI Neck: Full Range of Motion Respiratory: Chest Non Tender, Lungs Clear, Normal Breath Sounds Cardiovascular: Regular Rate, Rhythm Gastrointestinal: normal bowel sounds, soft, tenderness, other (inc clean/dry) Extremity: Normal Capillary Refill Neurologic/Psychiatric: Alert, Oriented x3 Skin: Normal Color Lymphatic: No Adenopathy Results Lab Laboratory Tests 07/25/22 11:58: Glucometer 75 Microbiology 07/20/22 MRSA Screen - Final, Complete MRSA not isolated 07/19/22 Urine Culture - Final, Complete Mixed Bacterial Taya Assessment/Plan Assessment/Plan Assess & Plan/Chief Complaint SBO obstruction s/p dx laparoscopy, MARIBEL, resection appendiceal stump and cecal wedge. g-graffin UGI to colon in 4 hrs. now having mutiple BM's and tolerating diet. will remove drain. home soon. SHERWIN AGARWAL MD Jul 26, 2022 10:34
[2022-07-26 12:00] VITALS: BP 131/68
--- NOTE | 2022-07-26 12:44 | Progress Note ---
Subjective Date Seen by a Provider: Jul 26, 2022 Time Seen by a Provider: 11:00 Subjective/Events-last exam doing well. tolerating diet. having multiple BM's. pain controlled and a mbulating well. Objective Exam Vital Signs Date Time Temp Pulse Resp B/P (MAP) Pulse Ox O2 Delivery O2 Flow Rate FiO2 07/26/22 12:00 36.7 85 18 131/68 (89) 96 Room Air 07/26/22 08:08 37.2 85 18 110/59 (76) 94 Room Air 07/26/22 03:40 36.6 76 18 137/72 (93) 95 Room Air 07/25/22 23:18 37.4 79 18 119/61 (80) 95 Room Air 07/25/22 20:50 Room Air 07/25/22 20:10 37.2 77 20 125/59 (81) 94 Room Air 07/25/22 16:23 37.4 76 20 144/65 (91) 97 Room Air I & O 07/26/22 07:00 Intake Total 1800 ml Output Total 180 ml Balance 1620 ml Capillary Refill : General Appearance: No Apparent Distress HEENT: PERRL/EOMI Neck: Full Range of Motion Respiratory: Chest Non Tender, Lungs Clear Cardiovascular: Regular Rate, Rhythm Gastrointestinal: normal bowel sounds, soft, tenderness Extremity: Normal Capillary Refill Neurologic/Psychiatric: Alert, Oriented x3 Skin: Normal Color Lymphatic: No Adenopathy Results Lab Microbiology 07/20/22 MRSA Screen - Final, Complete MRSA not isolated 07/19/22 Urine Culture - Final, Complete Mixed Bacterial Taya Assessment/Plan Assessment/Plan Assess & Plan/Chief Complaint SBO obstruction s/p dx laparoscopy, MARIBEL, resection appendiceal stump and cecal wedge. g-graffin UGI to colon in 4 hrs. now having mutiple BM's and tolerating diet. will remove drain. home soon. SHERWIN AGARWAL MD Jul 26, 2022 12:44
== END 2022-07-26 13:35 | disposition home or self-care (01) | DRG 330 ==
LOC: EDUNIT# 16:22 → ER 16:24 → 4TH 19:36
PROVIDERS: ADMIT Surgery; ATTEND Surgery
PROC: 0DB Gastrointestinal System, Excision (ICD-10-PCS; 2022-07-21)
PROC: 0DN83ZZ Release Small Intestine, Percutaneous Approach (ICD-10-PCS; 2022-07-21)
PROC: 0DTJ4ZZ Resection of Appendix, Percutaneous Endoscopic Approach (ICD-10-PCS; principal; 2022-07-21 09:51)
DX: K36 Other appendicitis (principal); K56.50 Intestinal adhesions [bands], unspecified as to partial versus complete obstruction; G40.909 Epilepsy, unspecified, not intractable, without status epilepticus; M19.90 Unspecified osteoarthritis, unspecified site; F17.210 Nicotine dependence, cigarettes, uncomplicated
CPT/HCPCS: 36415; 74019; 74177; 74250; 80048; 80053; 81000; 82378; 82947; 83690; 85007; 85025; 85027; 87081; 87088; 96361; 96365; 96375